=== PATIENT | female | born 1995 | race Two or more races ===

== ENCOUNTER 2024-03-30 18:15 | Emergency (ER) | payer MEDICAID, SELFPAY ==
[2024-03-30 18:42] VITALS: BP 134/81; PULSE 120; RESP 18; TEMP 39.6; O2SAT 95; BMI 53.8
--- NOTE | 2024-03-30 18:54 | XR_ITS ---
Examination: PA lateral chest 2 views FINDINGS: Upright PA and lateral chest 2 views Examination type: March 30, 20242009 hours Comparison September 11, 2020 INDICATIONS: Coughing beginning 3 days ago. FINDINGS: Normal heart size No lumbar pneumonia The osseous structures are intact IMPRESSION: No lobar pneumonia identified
--- NOTE | 2024-03-30 18:55 | PD.EDRME ---
Rapid Medical Screening Exam [facility] Arrival date/time: 03/30/24 18:15 28F with history of asthma presents to ED with 2 days of cough, weakness, dizziness, fevers/chills, and lower back pain. Patient denies SOB and dysuria/hematuria. Chief Complaint: Flu Like Symptoms Vital signs: Vital Signs Temperature 103.2 F H 03/30/24 18:42 Pulse Rate 120 H 03/30/24 18:42 Respiratory Rate 18 03/30/24 18:42 Blood Pressure 134/81 H 03/30/24 18:42 Pulse Oximetry (%) 95 03/30/24 18:42 Oxygen Delivery Method Room Air 03/30/24 18:42
[2024-03-30 19:14] LABS: Lactate (Lactic Acid) 1.1 mMol/L (0.4-2.0)
[2024-03-30 19:21] LABS: Basophils % (Auto) 0 % (0-2.5); Eosinophils % (Auto) 0 % (0-10); Hematocrit 41.3 % (36.0-46.0); Hemoglobin 13.2 g/dL (12.0-16.0); Immature Granulocytes % (Auto) 0 % (0-0); Immature Granulocytes Auto 0.03 Thou/mm3 (0.00-0.00); Lymphocytes # (Auto) 0.9 Thou/mm3 (1.0-4.8); Lymphocytes % (Auto) 9 % (10-50); Mean Corpuscular Hemoglobin 24.7 pg (25.0-35.0); Mean Corpuscular Volume 77 fL (80-100); Monocytes # (Auto) 0.6 Thou/mm3 (0.0-0.8); Monocytes % (Auto) 5 % (0-12); Neutrophils # (Auto) 8.9 Thou/mm3 (1.8-7.7); Neutrophils % (Auto) 85 % (37-80); Nucleated Red Blood Cell % 0 /100 WBC (0); Platelet Count 248 Thou/mm3 (140-440); RDW Standard Deviation 40.6 fL (36.4-46.3); Red Blood Count 5.35 Miln/mm3 (4.00-5.20); White Blood Count 10.4 Thou/mm3 (3.6-11.0)
[2024-03-30 19:24] VITALS: TEMP 39.6
[2024-03-30] MEDS: ACETAMINOPHEN 500 MG TABLET 1000 MG PO (19:24)
[2024-03-30] MEDS: IBUPROFEN TAB 400 MG TABLET 800 MG PO (19:24)
[2024-03-30] MEDS: OSELTAMIVIR 75 MG CAPSULE PO (19:31)
[2024-03-30 19:46] LABS: Alanine Aminotransferase 14 U/L (10-49); Albumin, Serum 4.3 gm/dL (3.5-5.0); Albumin/Globulin Ratio 1.3 (1.2-2.2); Alkaline Phosphatase 90 U/L (46-116); Anion Gap 10 (7-16); Aspartate Amino Transferase 26 U/L (0-34); BUN/Creatinine Ratio 10 Ratio (12-20); Bilirubin,Total 0.3 mg/dL (0.3-1.2); Blood Urea Nitrogen 8 mg/dL (9-23); Calcium 8.4 mg/dL (8.3-10.6); Calcium (Corrected) 8.4 mg/dL (8.5-10.1); Chloride 104 mMol/L (98-107); Creatinine (Component) 0.8 mg/dL (0.6-1.3); Estimated Creatinine Clearance 155.1 mL/min (>60); Globulin 3.2 gm/dL (2.3-3.5); Glucose 141 mg/dL (74-106); Osmolality,Calculated 268 (275-295); Potassium 3.6 mMol/L (3.4-5.1); Procalcitonin 0.35 ng/ml (0.0-0.49); Sodium 134 mMol/L (136-145); Total Protein 7.5 gm/dL (5.7-8.2); eGFR > 60 See Note
[2024-03-30 20:09] LABS: Collection Type, Urine Clean Catch
[2024-03-30 20:20] LABS: HCG Qualitative,Urine Negative
[2024-03-30 20:24] LABS: Bacteria,Urine Rare; Bilirubin,Urine Negative (Negative); Blood,Urine 1+ (Negative); Clarity,Urine Clear (Clear/Hazy); Color,Urine Yellow (Lt Yel-Yel); Culture Indicated,Urine Not Indicated; Glucose, Urine Negative (Negative); Ketones,Urine 1+ (Negative); Leukocyte Esterase,Urine Positive (Negative); Nitrite,Urine Negative (Negative); Protein,Urine 1+ (Neg - Trace); RBC,Urine 10 /hpf (0-3); Specific Gravity,Urine 1.026 (1.001-1.035); Squamous Epithelial Cell,Urine 6 /hpf (0-5); Urobilinogen,Urine Negative mg/dL (0.0-1.0); WBC,Urine 9 /hpf (0-5)
[2024-03-30 20:38] VITALS: TEMP 37.8
[2024-03-30 20:57] LABS: Amphetamine/Methamp Scrn,U Negative (Negative); Barbiturate Screen,Urine Negative (Negative); Benzodiazepines Screen,Urine Negative (Negative); Benzoylecgonine Screen, Ur Negative (Negative); Fentanyl Screen,Urine Negative (Negative); Opiate Screen,Urine Negative (Negative); THC Screen,Urine Negative (Negative)
[2024-03-30 21:17] VITALS: BP 113/71; PULSE 101; RESP 16; O2SAT 95
--- NOTE | 2024-03-30 21:17 | PD.EDURI ---
Upper Respiratory Inf. RME/HPI General Chief Complaint: Flu Like Symptoms Stated Complaint: cough, n/v, fever, weakness, sore throat x 3 days Time Seen by Provider: 03/30/24 19:18 Arrival date/time: 03/30/24 18:15 RME / HPI RME / HPI Narrative: 28F with history of asthma presents to ED with 2 days of cough, weakness, dizziness, fevers/chills, and lower back pain. Patient denies SOB and dysuria/hematuria. Denies any other complaints or medications taken prior travel. Related Data Home Medications ?Medication ?Instructions ?Recorded ?Confirmed aspirin 81 mg capsule,delayed 162 mg PO QDAY 08/07/22 08/12/22 release prenat.vits,olivier,yyf-wcuw-hokhf 1 tab PO QDAY 08/07/22 08/12/22 Previous Rx's ?Medication ?Instructions ?Recorded ibuprofen 800 mg tablet 800 mg PO TID PRN pain #30 tabs 01/02/24 ibuprofen 800 mg tablet 800 mg PO TID PRN pain #30 tabs 03/30/24 oseltamivir 75 mg capsule (Tamiflu) 75 mg PO BID 5 days #10 caps 03/30/24 Allergies Allergy/AdvReac Type Severity Reaction Status Date / Time shrimp Allergy Mild Hives Verified 03/30/24 18:16 Review of Systems Review of Systems Narrative Review of Systems: Review of system reviewed and within normal limits except mentioned in HPI ED Exam Narrative Physical exam: VITAL SIGNS: Reviewed. GENERAL APPEARANCE: Alert and interactive, follows commands, no acute distress, HEAD AND FACE: Non-traumatic. ENT: PERRL, pink conjunctivitis, eyelid no trauma, Mucous membrane moist. NECK: Supple, nontender, no nuchal rigidity. CHEST: No tenderness, no crepitus, no paradoxical movement, no retractions. LUNGS: Clear, well ventilated, symmetric, no rales, no wheezing, no ronchi, no stridor, good breath sounds bilaterally. HEART: Regular rate, regular rhythm, no murmur, no gallops. ABDOMEN: Soft, positive bowel sounds, nondistended, no guarding, nontender, no rebound, no masses, RECTAL: Deferred. GENITAL: Deferred. NEUROLOGICAL: Gross motor function intact sensory function intact, Appropriate for age. MUSCULOSKELETAL: low back nontender, full range of motion. EXTREMITIES: Nontender, full range of motion. SKIN: Color pink, dry, no rash, no lacerations, no abrasions, no contusions. LYMPHATICS: Deferred. Course Quality Measures none Orders Category Date Time Status Bedside COVID-19 Antigen Test NOW Care 03/30/24 19:09 Active Bedside Influenza A&B Antigen Test NOW Care 03/30/24 18:25 Completed XR chest 1V portable Stat Exams 03/30/24 18:54 Completed CBC Stat Lab 03/30/24 19:01 Completed CMP [Comprehensive Metabolic Panel] Stat Lab 03/30/24 19:01 Completed Drug Screen,Urine Stat Lab 03/30/24 19:47 Completed HCG Qualitative,Urine Stat Lab 03/30/24 19:47 Completed Lactate (Lactic Acid) Stat Lab 03/30/24 19:01 Completed Procalcitonin Stat Lab 03/30/24 19:01 Completed Urinalysis, C/S if Indicated Stat Lab 03/30/24 19:47 Completed Acetaminophen Tab [Tylenol ES Tab] Med 03/30/24 18:54 Discontinued 1,000 mg PO X1 ONE Ibuprofen Tab [Motrin Tab] Med 03/30/24 18:54 Discontinued 800 mg PO X1 ONE Oseltamivir [Tamiflu] Med 03/30/24 19:19 Discontinued 75 mg PO X1 ONE cefTRIAXone [Rocephin] 1,000 mg Med 03/30/24 19:11 Discontinued Lidocaine 1% 20 ml [Xylocaine 1% 20 ML] 2.1 ml IM X1 Vital Signs Vital signs: Vital Signs Temperature 103.2 F H 03/30/24 18:42 Pulse Rate 120 H 03/30/24 18:42 Respiratory Rate 18 03/30/24 18:42 Blood Pressure 134/81 H 03/30/24 18:42 Pulse Oximetry (%) 95 03/30/24 18:42 Oxygen Delivery Method Room Air 03/30/24 18:42 Upper Respiratory Infection MDM Narrative MDM Narrative:: 28F with history of asthma presents to ED with 2 days of cough, weakness, dizziness, fevers/chills, and lower back pain. Patient denies SOB and dysuria/hematuria. Denies any other complaints or medications taken prior travel. Patient tested positive for influenza. The rest of the labs unremarkable. Results discussed with the patient. Including normal chest x-ray. Patient received ceftriaxone IM initially and Tamiflu. Patient appears nontoxic and hemodynamically stable. Patient discharged home and instructed to follow-up with primary care provider in 24 to 48 hours. Instructed to return to the emergency department immediately if worsening of symptoms Patient data External records reviewed:: None Clinical information provided by:: patient Social determinants that could affect healthcare access:: none Patient has the following chronic illnesses:: None How is presenting disease/condition affected by chronic disease/condition?: no chronic disease Evaluation data The following diagnostics were reviewed and interpreted by me:: lab results and radiology exam(s) Lab and/or radiology exams considered but not ordered:: None Interpretation Summary: See result MDM Medications / Prescriptions Medications or Prescriptions considered but not ordered:: None Medication administrations:: Medication Administration History Discontinued Medications Acetaminophen (Acetaminophen 500 Mg Tablet) 1,000 mg PO X1 ONE Stop: 03/30/24 18:55 Last Admin: 03/30/24 19:24 Dose: 1,000 mg Documented By: REECE Ceftriaxone Sodium 1,000 mg/ (Lidocaine HCl 2.1 ml) 0 mg IM X1 ONE Stop: 03/30/24 19:12 Last Admin: 03/30/24 19:32 Dose: Not Given Documented By: REECE Non-Admin Reason: Cancelled by Provider Ibuprofen (Ibuprofen Tab 400 Mg Tablet) 800 mg PO X1 ONE Stop: 03/30/24 18:55 Last Admin: 03/30/24 19:24 Dose: 800 mg Documented By: REECE Oseltamivir Phosphate (Oseltamivir 75 Mg Capsule) 75 mg PO X1 ONE Stop: 03/30/24 19:20 Last Admin: 03/30/24 19:31 Dose: 75 mg Documented By: REECE Comments: packaged damaged Tamiflu, ibuprofen, ceftriaxone IM Consultations Consultation(s) initiated? (list below): No Diagnosis Upper Respiratory Differential Diagnosis: upper respiratory infection, viral infection and influenza Most likely diagnosis given after review of the tests above:: Influenza Admission Indicated Admission indicated?: not indicated Admission Request Was there a request for admission?: No Disposition Plan Disposition Plan: Discharge Discharge Attestation Discharge Attestation: The patient and all family members were given an opportunity to ask questions and understood the discharge instructions. Discharge instructions specifically effects, indications for sooner follow up or return to the emergency department, and the expected course of current diagnosis. Patient condition: Stable Discharge Plan Plan Patient Disposition: HOME (Self Care) Disposition Comment: stable Prescriptions/Referrals Prescriptions/Med Rec: New oseltamivir [Tamiflu] 75 mg capsule 75 mg PO BID 5 Days Qty: 10 0RF ibuprofen 800 mg tablet 800 mg PO TID PRN (Reason: pain) Qty: 30 0RF No Action ibuprofen 800 mg tablet 800 mg PO TID PRN (Reason: pain) Qty: 30 0RF aspirin 81 mg Capsule,Delayed Release(Dr/Ec) 162 mg PO QDAY Vitamin Tablet 1 tab PO QDAY Referrals: No Primary/Family,Physician [Primary Care Provider] - In 1 week Problem List Clinical Impression: Influenza Patient/Caregiver Discharge Instructions Discharge Activity: activity as tolerated Education Materials: ED Influenza (Adult) Additional Instructions: Thank you for the opportunity for serving you today. You are stable for discharged . You are advised to: Follow-up with your PCP in 1 to 2 days Return to ED for worsening of symptoms Increase oral fluids Take medication as prescribed Print Language: Burmese Stand Alone Forms: Marcie Award Info., Patient Portal Info Letter PA/[employer] OPERATOR Supervising Physician PA/[employer]BER [employer]MENT [employer]ANT OPERATOR Supervising Physician: MD Ashish
== END 2024-03-30 21:27 | disposition home or self-care (01) ==
PROVIDERS: Physician Assistant; Emergency Provider Emergency Medicine
DX: J11.1 Influenza due to unidentified influenza virus with other respiratory manifestations (principal)
CPT/HCPCS: 36415; 71045; 80053; 80307; 81001; 81025; 83605; 84145; 85025; 87400; 87811; 99283; A9270